=== PATIENT | female | born 1980 | race Caucasian/White ===

== ENCOUNTER 2016-07-29 23:23 | Emergency (ER) | payer OTHER ==
[2016-07-29] MEDS: CLINDAMYCIN 150 MG CAPSULE PO SCH (23:53)
--- NOTE | 2016-07-29 23:54 | PDOC ---
Skin Rash/Insect/Abscess HPI - General Chief Complaint: Laceration / Wound Stated Complaint: incision concerns Date Seen by Provider: 07/29/16 Time Seen by Provider: 23:40 Source: POSITIVE: Patient Exam Limitations: POSITIVE: No limitations Nurse's Notes Reviewed & Considered: Yes - History of Present Illness Initial Comments: The patient is a 35-year-old female who presents to the emergency department with purulent drainage from her incision. She underwent per Dr. Soriano 2 weeks ago. She states that yesterday she noticed a small amount of fluid draining from the right side of the incision. Initially this fluid was clear. This evening she had purulent drainage from the same area of the incision. She also has had some increased soreness and pain in this area area she thought she had some chest chills earlier today. She denies any fever or any other associated symptoms. Have you received a tetanus shot in the past 10 years?: Yes - Patient Home Medications Home Medications: Home Medications Docusate Sodium [Colace] 100 mg PO DAILY PRN #60 capsule 07/17/16 Ferrous Sulfate 325 mg PO BID #60 tablet 07/17/16 Ibuprofen 800 mg PO TID #30 tab 07/17/16 Clindamycin HCl [Cleocin HCl] 300 mg PO TID #21 capsule 07/29/16 - Patient Allergies Allergies/Adverse Reactions: Allergies Allergy/AdvReac Type Severity Reaction Status Date / Time latex AdvReac Intermediate VOMITING Verified 07/29/16 23:30 povidone-iodine AdvReac Intermediate itchy and Verified 07/29/16 23:30 [From Betadine] red soap [From Betadine] AdvReac Intermediate itchy and Verified 07/29/16 23:30 red Past Medical History - heen HEENT History: Denies History Cardiovascular History: Denies History Respiratory History: Denies History Gastrointestinal History: Denies History Genitourinary History: Denies History Endocrine History: Denies History Musculoskeletal History: Other (please comment) Prosthesis or Implant: No Additional Musculoskeletal History: benign tremor. right shoulder scope x2 Neurological History: Denies History Blood Disorders: Denies History Psychiatric History: Other (please comment) Additional Psychiatric History: anxiety Female Reproductive History: Other (please comment) Additional Female Reproductive History: D and C in 2011 Obstetrical History: Delivery Cancer History: Denies History In Past Year Been Physically Harmed or Verbally Threatened: No History of MDRO: No Tobacco Use: Never Smoker Alcohol Use: None Substance Use Type: None Previous Surgical History: Yes Type / Date of Surgery: . right shoulder x2. d&c. tonsilectomy Significant Family History: No pertinent family hx Past Medical History Reviewed: Reviewed - No Changes ROS - Limitations ROS Limitations: No Limitations Constitution: REPORTS: Chills. DENIES: Fever Skin Rash/Insect/Abscess Exam - General Appearance General Appearance: REPORTS: Alert, Cooperative, No Acute Distress - Skin Skin: REPORTS: Other (Examination the incision reveals a small open area on the right side with a very small amount of. Wound drainage, there is no visible stitch within the wound, this purulent drainage is cultured, there is no surrounding erythema or induration.) Skin Rash/Abscess Progress - Patient's Progress MDM / ED Course: There is a small amount of purulent drainage from the incision, there is no palpable abscess or significant surrounding erythema or induration. This may represent a small seroma that has become infected or a stitch abscess. She was started on clindamycin 300 mg 3 times a day for 7 days. A wound culture is pending. Recommend she return to the emergency room if increased pain or swelling, fevers or chills, worsening or change in symptoms. She will follow- up with Dr. Soriano. - Consult Counseled: POSITIVE: Patient, Family, RE: DX, RE: Need for F/U Patient Care Time - Estimated PCT Patient Care Time (In Minutes): 10 Vital Signs - VS Reviewed Vital Signs Reviewed: Yes Discharge Clinical Impression: Wound infection Condition: Stable Prescriptions / Orders: Clindamycin HCl [Cleocin HCl] 300 mg PO TID #21 capsule Patient Instructions Given at Discharge: Wound Infection (ED) Additional Instructions: There does appear to be a small area of infection in the incision. You have been started on clindamycin 300 mg 3 times a day for 7 days. A culture has been obtained and should be available in the next couple of days. Recommend continuation of Tylenol or ibuprofen as needed for pain. You may need to apply a small dressing for the next couple of days if there is continued drainage. Return to the emergency room if increased pain or swelling , fevers or chills, any worsening or change in symptoms. Recommend follow-up with Dr. Soriano, call tomorrow to arrange follow-up. Follow Up With: NONE,NONE [Primary Care Provider] -
[2016-07-30 00:06] VITALS: RESP 18; TEMP 98.5
== END 2016-07-29 23:58 | disposition home or self-care (01) ==
LOC: ER 23:23
DX: O86.0 Infection of obstetric surgical wound (principal); G89.18 Other acute postprocedural pain
CPT/HCPCS: 87070; 87077; 87186; 87205; 99282